=== PATIENT | female | born 1960 | race African-American/Black ===

== ENCOUNTER 2023-08-08 05:03 | Emergency (ER) | payer MEDICARE ==
[~2023-08-08] VITALS: Ht 157.5 cm; Wt 54.5 kg
[2023-08-08 05:20] VITALS: O2SAT 97
[2023-08-08] MEDS ORDERED: CYCLOBENZAPRINE 10MG TABLET PO STA (05:39)
[2023-08-08] MEDS ORDERED: IBUPROFEN 400MG TABLET PO ONE (05:45)
[2023-08-08] MEDS ORDERED: ACETAMINOPHEN 325MG TABLET PO ONE (05:45)
[2023-08-08 06:14] VITALS: BP 140/80
[2023-08-08] MEDS ORDERED: TOPUD PO (06:35)
[2023-08-08 07:07] VITALS: PULSE 75; RESP 16; TEMP 97.4
== END 2023-08-08 07:09 | disposition home or self-care (01) ==
LOC: ER 05:03
DX: M54.50 Low back pain, unspecified (principal); J45.909 Unspecified asthma, uncomplicated; I10 Essential (primary) hypertension; Z88.0 Allergy status to penicillin; Z98.890 Other specified postprocedural states
CPT/HCPCS: 99283

== ENCOUNTER 2024-08-08 16:59 | Inpatient (IN) | payer MEDICARE, MEDICAID ==
[~2024-08-08] VITALS: Ht 160 cm; Wt 46.0 kg
[~2024-08-08 16:59] MED LIST: TOPUD PO
[2024-08-08] MEDS: ALBUTEROL (0.083%) 2.5MG/3ML NEB HHN STA (17:41)
[2024-08-08] MEDS: IPRATROPIUM BROMIDE (0.02%) 0.5MG/2.5ML NEB HHN STA (17:42)
[2024-08-08 17:46] VITALS: PULSE 82; RESP 20; O2SAT 92
[2024-08-08] MEDS: METHYLPREDNISOLONE SOD SUCC 125MG/2ML (ACT-O-VIAL) IV STA (18:04)
[2024-08-08] MEDS: ASPIRIN 81MG TABLET PO ONE (18:04)
[2024-08-08 18:09] LABS: BASOPHILS % 1.2 % (0.0-2.0); HEMATOCRIT. 42.6 % (36.0-48.0); HEMOGLOBIN. 14.1 g/dL (12.0-16.0); LYMPHOCYTES % 20.3 % (20.0-50.0); MEAN CORPUSCULAR HEMOGLOBIN 31.7 pg (28.0-32.0); MEAN CORPUSCULAR HGB CONC 33.1 g/dL (31.0-37.0); MEAN CORPUSCULAR VOLUME 95.8 fL (81.0-99.0); MEAN PLATELET VOLUME 9.7 fl (7.4-10.4); MONOCYTES % 8.2 % (2.0-8.0); NEUTROPHILS % 69.3 % (40.0-76.0); PLATELET 229 x1000/uL (130-400); RED BLOOD CELL COUNT 4.44 mill/uL (4.2-5.4); RED CELL DISTRIBUTION WIDTH 14.2 % (11.6-14.6); WHITE BLOOD COUNT 4.9 x1000/uL (4.5-11.0)
[2024-08-08 18:15] LABS: CHLORIDE 103 mEq/L (98-107); POTASSIUM 3.8 mEq/L (3.5-5.1)
[2024-08-08 18:16] LABS: CARBON DIOXIDE 29 mEq/L (21-32); SODIUM 140 mEq/L (136-145)
[2024-08-08 18:17] LABS: CALCIUM 9.8 mg/dL (8.7-10.4)
[2024-08-08 18:21] LABS: CREATININE 0.9 mg/dL (0.6-1.0); GLUCOSE 120 mg/dL (70-105)
[2024-08-08 18:22] LABS: UREA NITROGEN BLOOD 18 mg/dL (9-23)
[2024-08-08 18:23] LABS: ALANINE AMINOTRANSFERASE 8 IU/L (10-49); ALBUMIN 4.1 g/dL (3.2-4.8); ASPARTATE AMINOTRANSFERASE 18 IU/L (<34)
[2024-08-08 18:24] LABS: BILIRUBIN DIRECT 0.1 mg/dL (<=3.0); BILIRUBIN TOTAL 0.5 mg/dL (0.1-1.0); PROTEIN TOTAL 8.1 g/dL (6.0-8.3)
[2024-08-08 18:36] LABS: PARTIAL THROMBOPLASTIN TIME 39.8 sec (23.4-31.0); PROTHROMBIN TIME 10.9 sec (9.6-11.0)
[2024-08-08 18:45] LABS: TROPONIN I HIGH SENSITIVITY < 4 ng/L (3.0-34)
[2024-08-08] MEDS: CLONIDINE 0.1MG TABLET PO PRN (21:37)
[2024-08-09] MEDS ORDERED: ONDANSETRON HCL 4MG/2ML INJ IV PRN (00:30)
[2024-08-09] MEDS ORDERED: HYDROCODONE/ACETAMINOPHEN 5/325MG TABLET PO PRN (00:30)
[2024-08-09] MEDS ORDERED: ACETAMINOPHEN 325MG TABLET PO PRN (00:30)
[2024-08-09 01:00] VITALS: BP 149/75; PULSE 84; RESP 18; TEMP 36.33624; TEMP 36.3624; O2SAT 96
[2024-08-09] MEDS ORDERED: IPRA4AER INH (01:39)
[2024-08-09] MEDS ORDERED: LISI20TA31 MT (01:39)
[2024-08-09] MEDS ORDERED: ALBU90AE INH ×2 (01:39→13:59)
[2024-08-09] MEDS ORDERED: ADAL40PE SQ (01:39)
[2024-08-09] MEDS ORDERED: METF-1149 MT (01:39)
[2024-08-09] MEDS: METHYLPREDNISOLONE SOD SUCC 40MG/ML (ACT-O-VIAL) IV SCH (01:58)
[2024-08-09] MEDS ORDERED: *PATIENT'S OWN MEDICATION STORAGE XX SCH (02:00)
[2024-08-09] MEDS: LEVOFLOXACIN 500MG PREMIX 100 ML IV NR (02:04)
[2024-08-09] MEDS ORDERED: LORA2TAB95 PO (03:46)
[2024-08-09] MEDS ORDERED: DEXTROSE 50% WATER 50ML SYRINGE IV PRN (04:15)
[2024-08-09] MEDS: INSULIN LISPRO 100 UNITS/ML SUBCUT SCH (06:13)
[2024-08-09] MEDS: BLOOD SUGAR DIAGNOSTIC STRIP TEST SCH (06:13)
[2024-08-09] MEDS: INFLUENZA VACCINE 05/PF 0.5 ML SYRINGE IM ONE (06:34)
[2024-08-09 07:28] LABS: *AMPHETAMINES SCREEN URINE PRESUMPTIVE POSITIVE (NEGATIVE); *BARBITURATES SCREEN URINE NEGATIVE (NEGATIVE); *BENZODIAZEPINES SCREEN URINE NEGATIVE (NEGATIVE); *COCAINE SCREEN URINE NEGATIVE (NEGATIVE)
[2024-08-09 07:29] LABS: CANNABINOID URINE SCREEN NEGATIVE (NEGATIVE); ECSTASY MDMA SCREEN URINE NEGATIVE (NEGATIVE); METHADONE URINE SCREEN NEGATIVE (NEGATIVE); OPIATES URINE SCREEN NEGATIVE (NEGATIVE); PHENCYCLIDINE URINE SCREEN NEGATIVE (NEGATIVE)
[2024-08-09 07:44] LABS: TROPONIN I HIGH SENSITIVITY < 4 ng/L (3.0-34)
[2024-08-09 08:00] VITALS: BP 148/67; PULSE 77; RESP 17; TEMP 36.05844; O2SAT 99
[2024-08-09 08:00] LABS: HEPATITIS B SURFACE ANTIGEN NEGATIVE (Negative)
[2024-08-09 08:21] LABS: HEPATITIS C AB REACTIVE (Pos) (Negative)
[2024-08-09] MEDS: ASPIRIN 81MG EC TABLET PO SCH (08:46)
[2024-08-09] MEDS: AMLODIPINE 10MG TABLET PO SCH (08:47)
[2024-08-09] MEDS: ENOXAPARIN 40MG/0.4ML SYR SUBCUT SCH (08:50)
[2024-08-09 09:58] VITALS: PULSE 73; RESP 16; O2SAT 95
[2024-08-09] MEDS: IPRATROPIUM/ALBUTEROL 0.5-3(2.5)MG/3ML NEB HHN SCH (09:58)
[2024-08-09 12:00] VITALS: BP 156/80; PULSE 91; RESP 17; TEMP 36.22512; O2SAT 97; O2SAT 99
[2024-08-09 12:08] VITALS: PULSE 82; RESP 16; O2SAT 95
[2024-08-09] MEDS ORDERED: IPRA3AMP9 HHN (13:59)
[2024-08-09] MEDS ORDERED: METH4TAB95 MT (13:59)
[2024-08-09] MEDS ORDERED: FLUT1DIS6 INH (13:59)
[2024-08-09 15:04] VITALS: BP 156/80; PULSE 91; TEMP 97.2; O2SAT 97
[2024-08-09 16:31] LABS: TROPONIN I HIGH SENSITIVITY < 4 ng/L (3.0-34)
[2024-08-09] MEDS ORDERED: LEVOFLOXACIN 500MG PREMIX 100 ML IV SCH (22:00)
[2024-08-09] MEDS ORDERED: LEVOFLOXACIN 250MG PREMIX 50 ML IV SCH (23:00)
== END 2024-08-09 16:10 | disposition home or self-care (01) | DRG 192 ==
LOC: ER 16:59 → EDBEDREQ 19:08 → 7EST 19:23 → EDBEDREQ 19:25
PROVIDERS: ADMIT Internal Medicine; ATTEND Internal Medicine
DX: J44.1 Chronic obstructive pulmonary disease with (acute) exacerbation (principal); R07.89 Other chest pain; I10 Essential (primary) hypertension; F15.10 Other stimulant abuse, uncomplicated; F17.210 Nicotine dependence, cigarettes, uncomplicated; Z88.0 Allergy status to penicillin; Z88.2 Allergy status to sulfonamides; Z88.3 Allergy status to other anti-infective agents
CPT/HCPCS: 36415; 71045; 80048; 80076; 80305; 82962; 83036; 83880; 84484; 85025; 86705; 87340; 90686; 93005; 94640; 99285; J1650; J1956; J2919; J2920

== ENCOUNTER 2025-09-01 20:54 | Emergency (ER) | payer BC, MEDICAID ==
[~2025-09-01] VITALS: Ht 160 cm; Wt 51.2 kg
[~2025-09-01 20:54] MED LIST changes: +ADAL40PE SQ; +ALBU90AE INH; +FLUT1DIS6 INH; +IPRA3AMP9 HHN; +IPRA4AER INH; +LISI20TA31 MT; +LORA2TAB95 PO; +METF-1149 MT; +METH4TAB95 MT
[2025-09-01 21:13] VITALS: TEMP 36.7; O2SAT 98
[2025-09-01 21:39] LABS: GLUCOSE URINE NEGATIVE (NEGATIVE); KETONES URINE TRACE (NEGATIVE); LEUKOCYTE ESTERASE URINE TRACE (NEGATIVE); NITRITE URINE NEGATIVE (NEGATIVE); OCCULT BLOOD URINE NEGATIVE (NEGATIVE); PH URINE 5.5 (4.5-8.0); PROTEIN URINE 2+ (NEGATIVE); SPECIFIC GRAVITY URINE 1.022 (1.005-1.030); UROBILINOGEN URINE 1.0 E.U./dL (0.2-1.0)
[2025-09-01 21:58] LABS: CLARITY URINE HAZY (CLEAR); COLOR URINE YELLOW (YELLOW)
[2025-09-01 22:00] LABS: RBC URINE NONE SEEN /hpf (0-2); WBC URINE 0-2 /hpf (0-2)
[2025-09-01 22:01] LABS: BACTERIA URINE TRACE; MUCUS URINE 1+ /lpf (< = 2+); SQUAMOUS EPITHELIAL CELL URINE 3+ /lpf (RARE/1+)
[2025-09-01] MEDS: CYCLOBENZAPRINE 10MG TABLET PO ONE (23:33)
[2025-09-01] MEDS: KETOROLAC 15MG/ML VIAL IM ONE (23:34)
[2025-09-02] MEDS ORDERED: CYCL10TA21 MT (01:41)
[2025-09-02 01:51] VITALS: BP 131/68; PULSE 87; RESP 16; O2SAT 97
== END 2025-09-02 02:01 | disposition home or self-care (01) ==
LOC: ER 20:54
DX: M54.50 Low back pain, unspecified (principal); E11.9 Type 2 diabetes mellitus without complications; I10 Essential (primary) hypertension; Z79.51 Long term (current) use of inhaled steroids; Z79.84 Long term (current) use of oral hypoglycemic drugs; Z88.0 Allergy status to penicillin; Z88.1 Allergy status to other antibiotic agents; Z88.2 Allergy status to sulfonamides; Z91.013 Allergy to seafood
CPT/HCPCS: 99285; 81003; 96372; 72131; J1885